=== PATIENT | female | born 1980 | race Caucasian/White ===

== ENCOUNTER 2017-07-17 09:50 | Emergency (ER) | payer OTHER ==
[~2017-07-17] VITALS: Ht 167.6 cm; Wt 84.9 kg
[~2017-07-17 09:50] MED LIST: NOHOMEMEDS
[2017-07-17 10:36] LABS: HEMATOCRIT 46.5 % (36.0-46.0); MCH 30.7 PG (29.0-34.0); MCHC 33.8 G/DL (30.0-36.0); MCV 90.8 FL (83-99); MEAN PLAT.VOLUME 10.1 uM^3 (9.5-12.4); PLATELET COUNT 323 K/uL (156-360); RBC DIS.WIDTH-CV 12.4 % (11.8-14.6); RBC DIS.WIDTH-SD 41.1 % (39-53); RED BLOOD COUNT 5.12 M/uL (3.80-5.20)
[2017-07-17 10:47] LABS: CHLORIDE 102 mEq/L (99-109); POTASSIUM 4.9 mEq/L (3.7-5.4); SODIUM 137 mEq/L (136-147)
[2017-07-17 10:50] LABS: ANION GAP 12 MEQ/L (2-14); GLUCOSE 97 mg/dL (70-99)
[2017-07-17 10:53] LABS: GFR ESTIMATE (CALCULATED) > 59 mL/min/; UREA NITROGEN (BUN) 10 mg/dL (9-23)
[2017-07-17 10:56] LABS: TROP-I INTERPRETATION NEGATIVE; TROPONIN-I < 0.01 ng/mL (0.0-0.30)
[2017-07-17 14:43] LABS: D-DIMER ELISA < 150.00 ng/mLDDU (<230)
[2017-07-17 14:53] LABS: TROP-I INTERPRETATION NEGATIVE; TROPONIN-I < 0.01 ng/mL (0.0-0.30)
[2017-07-17] MEDS ORDERED: NAPROXEN500 MG PO (15:07)
[2017-07-17 15:17] VITALS: BP 124/85
== END 2017-07-17 15:18 | disposition home or self-care (01) ==
LOC: EME 09:50
PROVIDERS: Physician Assistant Medical
DX: R07.89 Other chest pain (principal); R00.0 Tachycardia, unspecified
CPT/HCPCS: 80048; 84484; 85027; 85379; 93005; 99281; 99284